=== PATIENT | male | born 1950 | race Caucasian/White ===

== ENCOUNTER → 2016-06-17 | Outpatient (CLI) | payer BC, OTHER ==
--- NOTE | 2016-06-17 15:55 | DX ---
Left Shoulder , 4 Views History: Pain without trauma. 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 Curr ently the humeral head is normally located. No arthritis is identified. There is no soft tissue calci fication or ossification. Impression: Suspect remote history of a posterior shoulder dislocation. If there is concern for shoul valarie instability, then consider 3 [facility] shoulder MRI for further evaluation.
== END ==
LOC: FIMAGING 11:13
PROVIDERS: ATTEND Family Medicine
DX: M25.512 Pain in left shoulder (principal)

== ENCOUNTER → 2016-07-15 | Outpatient (CLI) | payer BC, OTHER | LOC: FIMAGING 12:55 | PROVIDERS: ATTEND Family Medicine | DX: M75.82 Other shoulder lesions, left shoulder (principal); M75.22 Bicipital tendinitis, left shoulder; M19.012 Primary osteoarthritis, left shoulder ==